=== PATIENT | female | born 1975 | race Caucasian/White ===

== ENCOUNTER 2020-12-09 09:09 | Outpatient (RCR) | payer OTHER | END 2021-01-01 | LOC: EDBD → PT 09:09 | PROVIDERS: ATTEND Specialist | DX: M17.12 Unilateral primary osteoarthritis, left knee (principal); M25.562 Pain in left knee; M25.462 Effusion, left knee; M62.81 Muscle weakness (generalized); R26.89 Other abnormalities of gait and mobility ==